=== PATIENT | female | born 1955 | race Caucasian/White ===

== ENCOUNTER 2016-12-17 15:23 | Emergency (ER) | payer OTHER, SELFPAY ==
--- NOTE | 2016-12-17 16:55 | RAD ---
THREE VIEWS LEFT HAND: Comparison: 12-01-16 FINDINGS: Fall, landing on left arm, pain. FINDINGS: Three views of the left hand shows irregularity along the distal radius which may represent a fractu re of the distal radius. No fracture of the bones of the hand are appreciated. However, evaluation i s limited secondary to an overlying splint which obscures fine bony and soft tissue detail. IMPRESSION: Distal left radius fracture. POS: [facility]
== END 2016-12-17 16:19 | disposition home or self-care (01) ==
LOC: ERS 15:23
DX: S60.222A Contusion of left hand, initial encounter (principal); S50.02XA Contusion of left elbow, initial encounter; E03.9 Hypothyroidism, unspecified; E78.5 Hyperlipidemia, unspecified; F32.9 Major depressive disorder, single episode, unspecified; W18.30XA Fall on same level, unspecified, initial encounter